=== PATIENT | female | born 1990 | race Caucasian/White ===

== ENCOUNTER 2016-05-06 12:42 | Outpatient (CLI) ==
[2016-02-22 06:54] VITALS: BMI 31.3
== END 2016-05-06 12:43 | disposition home or self-care (01) ==
LOC: AMBL 12:42
PROVIDERS: ATTEND Internal Medicine
DX: M25.571 Pain in right ankle and joints of right foot (principal); R07.89 Other chest pain; V47.5XXA Car driver injured in collision with fixed or stationary object in traffic accident, initial encounter

== ENCOUNTER 2016-10-21 19:30 | Emergency (ER) ==
[2016-10-21 19:41] VITALS: BP 137/87; TEMP 99.1; BMI 30.7
[2016-10-21] MEDS: ATIVAN IM STA (19:59)
[2016-10-21 20:00] LABS: BASOPHILS % (AUTO) 0.3 % (0.0-3.0); EOSINOPHILS # (AUTO) 0.1 K/ul (0.0-0.7); EOSINOPHILS % (AUTO) 0.6 % (0.0-7.0); HEMATOCRIT 37.8 % (37.0-47.0); HEMOGLOBIN 13.5 g/dl (12.0-16.0); IMMATURE GRANULOCYTE % (AUTO) 0.3 % (0.0-5.0); LYMPHOCYTES % (AUTO) 32.3 (10.0-50.0); MEAN CORPUSCULAR HEMOGLOBIN 30.4 pg (27.0-31.0); MEAN CORPUSCULAR HGB CONC 35.7 (31.8-35.4); MEAN CORPUSCULAR VOLUME 85.1 fl (81.0-99.0); MONOCYTES # (AUTO) 0.6 K/uL (0.4-2.0); MONOCYTES % (AUTO) 5.9 (0-10); NEUTROPHILS # (AUTO) 5.6 K/ul (2.0-6.9); NEUTROPHILS % (AUTO) 60.6; PLATELET COUNT 256 10^3/uL (140-440); RED BLOOD COUNT 4.44 10^6/ul (4.20-5.40); WHITE BLOOD COUNT 9.25 K/ul (4.6-10.2)
--- NOTE | 2016-10-21 20:02 | ED.PDOC ---
General ED Provider: Dr. TESSY RIVER-ER Chief Complaint: Allergic Reaction Stated Complaint: since starting the celexa,,i feel shaky and jittery--sweaty and clenching my teeth Time Seen by Physician: 19:35 Mode of Arrival: Walk-In Information Source: Patient Exam Limitations: No limitations Nursing and Triage Documentation Reviewed and Agree: Yes Psychological Complaint Exam - Psychiatric Complaint/Exam Patient Complains Of: Present: Other Onset/Duration: 24hrs Symptoms Are: Still present Timing: Constant Episodes Lasting: Minutes Initial Severity: Mild Current Severity: Mild Character: Present: Anxious. Absent: Manic, Depressed, Fearful, Angry Aggravating: Reports: None Associated Signs And Symptoms: Reports: Sleep disturbance. Denies: Hostile, Confused, Hallucinating, Paranoid behavior, Appetite change Related History: Denies: Suicidal thoughts, Suicidal plan, Suicidal gestures, Homicidal thoughts, Homicidal plan, Homicidal gestures, Prior attempts, Recent stressors, Drug ingestion Completed Suicide Risk Factors: Patient In Custody Of Police: No Social Withdrawal Present: No Social Isolation Present: No Prior Suicide Attempt: No Injury From Prior Suicide Attempt: No Related Surgical History: Reports: None Patient Uncooperative For Exam: No Mood: Present: Anxious. Absent: Depressed, Angry, Guarded, Paranoid, Hallucinating, Manic, Agitated, Hearing voices Appearance: Present: Clean Thought Process: Present: Logical Insight: Present: Good Memory: Intact Judgement: Normal Danger To Others: No Patient Medically Stable For: Psych evaluation, Referral, Transfer Differential Diagnoses: Anxiety, Other Review of Systems - Review Of Systems Constitutional: Reports: No symptoms Eyes: Reports: No symptoms Ears, Nose, Mouth, Throat: Reports: No symptoms Respiratory: Reports: No symptoms Cardiac: Reports: No symptoms GI: Reports: No symptoms : Reports: No symptoms Musculoskeletal: Reports: No symptoms Skin: Reports: No symptoms Neurological: Reports: Anxiety Endocrine: Reports: No symptoms Hematologic/Lymphatic: Reports: No symptoms All Other Systems: Reviewed and Negative Past Medical History - Past Medical History Previously Healthy: Yes Endocrine: Reports: None Cardiovascular: Reports: None Respiratory: Reports: None Hematological: Reports: None Gastrointestinal: Reports: None Genitourinary: Reports: None Neuro/Psych: Reports: None Musculoskeletal: Reports: None Cancer: Reports: None Last Menstrual Period: now - Surgical History General Surgical History: Reports: Cholecystectomy, Tonsillectomy - Family History Family History: Reports: None - Social History Smoking Status: Current every day smoker Hx Substance Use: Yes (marijuana occasionally) Alcohol Screening: None Lives: With family - Immunizations Tetanus Shot up to Date: Yes Physical Exam - Physical Exam Appearance: Well-appearing, No pain distress, Well-nourished Eyes: FRANCY, EOMI, Conjunctiva clear ENT: Ears normal, Nose normal, Oropharynx normal Neck: Supple Respiratory: Airway patent, Breath sounds clear, Breath sounds equal, Respirations nonlabored Cardiovascular: RRR, Pulses normal, No rub, No murmur GI/: Soft, Nontender, No masses, Bowel sounds normal, No Organomegaly Musculoskeletal: Normal strength, ROM intact, No edema, No calf tenderness Skin: Warm, Dry, Normal color Neurological: Sensation intact, Motor intact, Reflexes intact, Cranial nerves intact, Alert, Oriented Psychiatric: Affect appropriate, Mood appropriate, Anxious Re-Evaluation - Re-Evaluation Time of Re-Evaluation: 20:51 Status: Improved Vital Signs Stable: Yes Pain Level: 0 Appearance: NAD Lungs: Clear Skin: Warm and Dry Neuro: Alert and Oriented X3 CV: RRR Critical Care Note - Critical Care Note Total Time (mins): 0 Course - Course Hematology/Chemistry: 10/21/16 19:59 10/21/16 19:59 Orders, Labs, Meds: Lab Review 10/21/16 10/21/16 19:51 19:59 WBC 9.25 RBC 4.44 Hgb 13.5 Hct 37.8 MCV 85.1 MCH 30.4 MCHC 35.7 H RDW Coeff of Magalie 13.9 Plt Count 256 Immature Gran % (Auto) 0.3 Neut % (Auto) 60.6 Lymph % (Auto) 32.3 [place] % (Auto) 5.9 Eos % (Auto) 0.6 Baso % (Auto) 0.3 Immature Gran # (Auto) 0.0 Neut # 5.6 Lymph # 3.0 [place] # 0.6 Eos # 0.1 Baso # 0.0 Sodium 140 Potassium 3.6 Chloride 107 Carbon Dioxide 20 L Anion Gap 16.6 BUN 13 Creatinine 0.93 Estimated GFR (MDRD) 73.00 BUN/Creatinine Ratio 13.97 Glucose 87 Calcium 9.3 Total Bilirubin 0.74 AST 15 ALT 19 Alkaline Phosphatase 77 Total Protein 7.2 Albumin 4.0 Globulin 3.2 Albumin/Globulin Ratio 1.25 TSH 0.418 Free T4 1.18 H Urine Test Negative Urine Opiates Screen Negative Ur Oxycodone Screen Negative Urine Methadone Screen Negative Ur Propoxyphene Screen Negative Ur Barbiturates Screen Negative U Tricyclic Antidepress Negative Ur Phencyclidine Scrn Positive Ur Amphetamine Screen Negative U Methamphetamines Scrn Negative U Benzodiazepines Scrn Negative Urine Cocaine Screen Negative U Cannabinoids Screen Positive Orders Category Date Time Status EKG-(ED ONLY) Stat CARDIO 10/21/16 19:44 Ordered Admissions Manager Rn [ED CELLULAR BIOLOGIST APPLIED] .ONCE EMERGENCY 10/21/16 19:45 Active CBC W/ AUTO DIFF Stat LAB 10/21/16 19:59 Completed COMPREHENSIVE METABOLIC PANEL Stat LAB 10/21/16 19:59 Completed FREE T4 (FREE THYROXINE) Stat LAB 10/21/16 19:59 Completed TSH [THYROID STIMULATING HORMONE] Stat LAB 10/21/16 19:59 Completed URINE DRUG SCREEN (RAPID FOR ED) [DRUG SCREEN, URINE, LAB 10/21/16 19:51 Completed RAPID] Stat URINE Stat LAB 10/21/16 19:51 Completed Lorazepam Inj [Ativan] MEDS 10/21/16 19:45 Discontinued 2 mg IM ONCE STA Medications Discontinued Medications Generic Name Dose Route Start Last Admin Trade Name Freq PRN Reason Stop Dose Admin Lorazepam 2 mg 10/21/16 19:45 10/21/16 19:59 Ativan IM 10/21/16 19:46 2 mg ONCE STA Administration Vital Signs: Temp Pulse Resp BP Pulse Ox 10/21/16 19:32 99.1 F 76 20 137/87 97 Departure - Departure Time of Disposition: 20:51 Disposition: HOME SELF-CARE Discharge Problem: Allergic state Instructions: General Allergic Reaction (ED) Condition: Good Pt referred to PMD for follow-up: Yes Additional Instructions: stop celexa---f/u wtih pcp Allergies/Adverse Reactions: Allergies cefprozil [From Cefzil] Adverse Reaction (Verified 10/21/16 19:46) Home Medications: Ambulatory Orders Azithromycin [Zithromax] 500 mg PO DIRECTED 10/21/16 Citalopram Hydrobromide [Celexa] 20 mg PO DAILY 10/21/16 Fluconazole [Diflucan] 150 mg PO ONCE 10/21/16 Norethindrone AC-Eth Estradiol [Microgestin 21 1-20 Tablet] 1 each PO DIRECTED 10/21/16 Valacyclovir HCl [Valacyclovir] 1,000 mg PO DIRECTED 10/21/16 Disposition Discussed With: Patient
[2016-10-21 20:05] LABS: URINE PREGNANCY INTERNAL QC INTERNAL QC VALID
[2016-10-21 20:12] LABS: COCAIN SCREEN,URINE NEGATIVE (NEGATIVE)
[2016-10-21 20:41] LABS: ALBUMIN/GLOBULIN RATIO 1.25; ANION GAP 16.6; BILIRUBIN,TOTAL 0.74 mg/dL (0.00-1.20); BUN/CREATININE RATIO 13.97; CALCIUM 9.3 mg/dL (8.2-10.2); CREATININE 0.93 mg/dL (0.60-1.30); POTASSIUM 3.6 mmol/L (3.5-5.10); TOTAL PROTEIN 7.2 g/dL (6.4-8.2)
== END 2016-10-21 20:40 | disposition home or self-care (01) ==
LOC: ED 19:30
DX: T43.225A Adverse effect of selective serotonin reuptake inhibitors, initial encounter (principal); R25.8 Other abnormal involuntary movements; R61 Generalized hyperhidrosis; F17.210 Nicotine dependence, cigarettes, uncomplicated
CPT/HCPCS: 36415; 80053; 80306; 81025; 84439; 84443; 85025; 93005; 93010; 96372; 99283

== ENCOUNTER 2017-02-05 12:44 | Outpatient (CLI) ==
[2017-02-05 12:52] LABS: FLU INTERNAL QC INTERNAL QC VALID; RAPID FLU A NEGATIVE (NEGATIVE); RAPID FLU B NEGATIVE (NEGATIVE)
== END 2017-02-05 12:45 | disposition home or self-care (01) ==
LOC: LAB 12:44
PROVIDERS: ATTEND Nurse Practitioner Family
DX: R50.9 Fever, unspecified (principal)
CPT/HCPCS: 87651; 87804; 87880

== ENCOUNTER 2017-05-22 11:46 | Emergency (ER) ==
[2017-05-22 12:06] VITALS: BP 137/88; TEMP 97.9; BMI 29.7
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
== END 2017-05-22 14:09 | disposition left against medical advice (07) ==
LOC: ED 11:46
DX: Z20.2 Contact with and (suspected) exposure to infections with a predominantly sexual mode of transmission (principal); F17.210 Nicotine dependence, cigarettes, uncomplicated
CPT/HCPCS: 36415; 80053; 80074; 81001; 85025; 86592; 86701; 87800; 99284